=== PATIENT | female | born 1980 | race Caucasian/White ===

== ENCOUNTER → 2018-10-12 | Outpatient (REF) | payer OTHER | LOC: M LAB LCGH 09:32 | DX: N93.9 Abnormal uterine and vaginal bleeding, unspecified (principal) ==

== ENCOUNTER → 2022-11-13 | Outpatient (CLI) | payer OTHER ==
[~2022-11-13] MED LIST: DESL1TAB3; GASTROGRAFIN SOLUTION 30ML As Ordered ONE; ISOVUE-370 76% 100ML VIAL As Ordered ONE; PROA1AER2 INH
== END ==
LOC: M RAD 12:50
PROVIDERS: ATTEND Specialist
DX: R59.0 Localized enlarged lymph nodes (principal); K57.90 Diverticulosis of intestine, part unspecified, without perforation or abscess without bleeding
CPT/HCPCS: 74177; Q9963; Q9967

== ENCOUNTER → 2022-12-31 | Outpatient (CLI) | payer OTHER ==
[~2022-12-31] MED LIST changes: -GASTROGRAFIN SOLUTION 30ML As Ordered ONE; -ISOVUE-370 76% 100ML VIAL As Ordered ONE
== END ==
LOC: M PLARAD 08:40
PROVIDERS: ATTEND Specialist
DX: K68.9 Other disorders of retroperitoneum (principal)